=== PATIENT | female | born 1970 | race American Indian/Alaskan Native ===

== ENCOUNTER 2018-12-14 16:55 | Emergency (ER) | payer BC ==
[2018-12-14 17:35] VITALS: RESP 18; TEMP 98.2; O2SAT 100
--- NOTE | 2018-12-14 18:38 | ED PDOC ---
HPI: General Adult Time Seen by Provider: 12/14/18 17:47 Chief Complaint (Nursing): Dizziness/Lightheaded Chief Complaint (Provider): Dizziness History Per: Patient History/Exam Limitations: no limitations Onset/Duration Of Symptoms: Days (2x) Current Symptoms Are (Timing): Still Present Severity: Moderate Additional Complaint(s): 48 year old female with no pertinent past medical history presents to the ED for an evaluation of dizziness that started yesterday. Patient states that yesterday she was taking the recycling out, was coming back up a set of stairs, and miscalculated where to step, and fell onto her right knee, left hand, and hit the right side of her face against the wall. Patient reports icing her knee and going to work shortly after. Last night after falling asleep for an hour, patient reports waking up with severe dizziness (room spinning). Patient reports having nausea and dizziness today, and states that laying down exacerbates her symptoms. Patient denies having headaches, vomiting, loss of consciousness, left hand pain, or difficulty walking. PMD: None provided Past Medical History Reviewed: Historical Data, Nursing Documentation, Vital Signs Vital Signs: Last Vital Signs Temp 98.2 F 12/14/18 17:32 Pulse 76 12/14/18 17:32 Resp 18 12/14/18 17:32 BP 145/90 12/14/18 17:32 Pulse Ox 100 12/14/18 17:32 MEG Report Viewed: Yes - Medical History PMH: No Chronic Diseases - Surgical History Other surgeries: myomectomy - Family History Family History: States: No Known Family Hx - Social History Current smoker - smoking cessation education provided: No Alcohol: Social Drugs: Denies - Home Medications Home Medications: Ambulatory Orders Medication Instructions Recorded Meclizine [Antivert] 25 mg PO Q6 PRN #12 tab 12/14/18 - Allergies Allergies/Adverse Reactions: Allergies Allergy/AdvReac Type Severity Reaction Status Date / Time No Known Allergies Allergy Verified 12/14/18 17:32 Review of Systems ROS Statement: Except As Marked, All Systems Reviewed And Found Negative Gastrointestinal: Positive for: Nausea. Negative for: Vomiting Musculoskeletal: Positive for: Other (right knee pain. (-) difficulty walking). Negative for: Arm Pain (left arm or hand pain) Neurological: Positive for: Dizziness. Negative for: Headache Physical Exam - Reviewed Nursing Documentation Reviewed: Yes Vital Signs Reviewed: Yes - Physical Exam Appears: Positive for: Well, Non-toxic, No Acute Distress Head Exam: Positive for: ATRAUMATIC, NORMOCEPHALIC Skin: Positive for: Normal Color, Warm, Dry Eye Exam: Positive for: Normal appearance, EOMI, PERRL Cardiovascular/Chest: Positive for: Regular Rate, Rhythm Respiratory: Positive for: Normal Breath Sounds Extremity: Positive for: Normal ROM, Other (left forearm volar aspect: small ecchymosis. Right knee: abrasions). Negative for: Tenderness, Deformity, Swelling Neurological/Psych: Positive for: Awake, Alert, Oriented (3x). Negative for: Motor/Sensory Deficits - ECG O2 Sat by Pulse Oximetry: 100 (RA) Pulse Ox Interpretation: Normal Medical Decision Making Medical Decision Makin:47 Initial impression: 48 year old female with a head injury. Rule out intracranial bleed. Differential diagnoses include but are not limited to benign proximal positional vertigo. Initial plan: * CT head w/o contrast * EKG * meclizine 25 mg PO once 19:00 Patient is signed out by me to Hussein Oliver MD pending CT head and reevaluation. ScribeAttestation: Documented byAubree Tobin, acting as a scribe for David Parr MD. Provider ScribeAttestation: All medical record entries made by the Scribe were at my direction and personally dictated by me. I have reviewed the chart and agree that the record accurately reflects my personal performance of the history, physical exam, medical decision making, and the department course for this patient. I have also personally directed, reviewed, and agree with the discharge instructions and disposition. Disposition - Clinical Impression Clinical Impression: Dizziness, Head injury - Patient ED Disposition Is Patient to be Admitted: Transfer of Care Counseled Patient/Family Regarding: Studies Performed, Diagnosis - Disposition Disposition: Transfer of Care Disposition Time: 19:00 Condition: STABLE Prescriptions: Meclizine [Antivert] 25 mg PO Q6 PRN #12 tab PRN Reason: Dizziness Instructions: Vertigo (a Type of Dizziness), Labyrinthitis Patient Signed Over To: Hussein Oliver
--- NOTE | 2018-12-14 19:13 | ED PDOC ---
- ECG O2 Sat by Pulse Oximetry: 100 (RA) Medical Decision Making Medical Decision Makin:00 Patient is signed out to me by David Parr MD pending CT head and reevaluation. 19:58 CT head read and reviewed by radiologist FINDINGS: BRAIN No acute intraparenchymal hemorrhage. No mass lesion. No CT evidence for acute territorial infarct. No midline shift or extra-axial collections. VENTRICLES: No hydrocephalus. ORBITS: The orbits are unremarkable. SINUSES AND MASTOIDS: The paranasal sinuses and mastoid air cells are clear. BONES: No fracture. SOFT TISSUES: Unremarkable. IMPRESSION: No acute intracranial abnormality. 21:10 Upon provider reevaluation patient reports having an improvement in symptoms, is medically stable, and requires no further treatment in the ED at this time. Patient will be discharged home with Rx for antivert. Counseling was provided and all questions were answered regarding diagnosis of vertigo and head injury and need for follow up with PMD. There is agreement to discharge plan. Return if symptoms persist or worsen. ScribeAttestation: Documented byAubree Tobin, acting as a scribe for Hussein Oliver MD. Provider ScribeAttestation: All medical record entries made by the Scribe were at my direction and personally dictated by me. I have reviewed the chart and agree that the record accurately reflects my personal performance of the history, physical exam, medical decision making, and the department course for this patient. I have also personally directed, reviewed, and agree with the discharge instructions and disposition. Disposition - Clinical Impression Clinical Impression: Dizziness, Head injury - POA Present On Arrival: None - Disposition Disposition: Routine/Home Disposition Time: 21:10 Condition: STABLE Prescriptions: Meclizine [Antivert] 25 mg PO Q6 PRN #12 tab PRN Reason: Dizziness Instructions: Vertigo (a Type of Dizziness), Labyrinthitis
[2018-12-14 21:18] VITALS: BP 140/90; PULSE 72
--- NOTE | 2018-12-15 10:22 | CARD ---
APPROVED REPORT Date of service: 12/14/2018 EKG Measurement Heart [id number] <Conclusion> Normal sinus rhythm Possible Left atrial enlargement Borderline ECG
--- NOTE | 2018-12-15 12:02 | CT ---
Date of service: 12/14/2018 PROCEDURE: CT HEAD WITHOUT CONTRAST. HISTORY: head injury dizziness COMPARISON: None available. TECHNIQUE: Axial computed tomography images were obtained through the head/brain without intravenous contrast. Radiation dose: Total exam DLP = 881.26 mGy-cm. This CT exam was performed using one or more of the following dose reduction techniques: Automated exposure control, adjustment of the mA and/or kV according to patient size, and/or use of iterative reconstruction technique. FINDINGS: HEMORRHAGE: No intracranial hemorrhage. BRAIN: Normal donahue-white matter differentiation and density are appreciated throughout the cerebrum and cerebellum with the brainstem appearing unremarkable as well. There is no mass effect. There is no suspicious extra-axial fluid collection and the midline brain anatomy appears diffusely unremarkable. VENTRICLES: Unremarkable. No hydrocephalus. CALVARIUM: No destructive bony lesion or displaced fracture identified including through the skullbase. PARANASAL SINUSES: Unremarkable as visualized. No significant inflammatory changes. MASTOID AIR CELLS: Unremarkable as visualized. No inflammatory changes. OTHER FINDINGS: None. IMPRESSION: Unremarkable unenhanced head CT. Preliminary report provided by Derick, 12/14/2018, 7:58 p.m..
== END 2018-12-14 20:55 | disposition home or self-care (01) ==
LOC: H.ER 16:55
DX: R42 Dizziness and giddiness (principal)